=== PATIENT | male | born 1995 | race Caucasian/White ===

== ENCOUNTER 2021-06-20 15:59 | Emergency (ER) | payer MEDICAID ==
--- NOTE | 2021-06-20 16:36 | EDM.PDOC ---
<JeradMendez churchill - Last Filed: 06/20/21 18:55> ED HPI GENERAL MEDICAL PROBLEM - General Chief Complaint: Gastrointestinal Problem Stated Complaint: BLOOD IN STOOL Time Seen by Provider: 06/20/21 16:00 Source of Information: Reports: Patient History Limitations: Reports: No Limitations - History of Present Illness INITIAL COMMENTS - FREE TEXT/NARRATIVE: 26-year-old male past medical history DIXON-2 mutation, frequent blood clots, esophageal varices, status post TIPS procedure, status post variceal gluing, status post splenic and hepatic stent placement, chronic warfarin and aspirin use presents for symptoms of upper GI bleed. Patient notes that for the last 3 or 4 days he has noted dark tarry stools. Yesterday he had an episode of hematemesis with a small amount of blood. Today he began to develop left upper quadrant abdominal pain and had another episode of hematemesis. Bilateral Back Pain Score (Numeric/FACES): 10 - Related Data Allergies Allergy/AdvReac Type Severity Reaction Status Date / Time morphine Allergy Intermediate Rash Verified 06/20/21 16:54 hydrocodone Allergy Rash Verified 06/20/21 16:54 Home Meds: Home Meds Aspirin/Omeprazole [Aspirin-Omeprazol Dr 325-40 mg] 06/20/21 [History] Warfarin [Coumadin] 06/20/21 [History] ED ROS GENERAL - Review of Systems Review Of Systems: Comprehensive ROS is negative, except as noted in HPI. ED EXAM, GENERAL - Physical Exam Exam: See Below Exam Limited By: No Limitations General Appearance: Alert, WD/WN, No Apparent Distress Ears: Hearing Grossly Normal Throat/Mouth: Normal Voice, No Airway Compromise Head: Atraumatic, Normocephalic Neck: Normal Inspection Respiratory/Chest: No Respiratory Distress, Lungs Clear, Normal Breath Sounds, No Accessory Muscle Use Cardiovascular: Normal Peripheral Pulses, Tachycardia GI/Abdominal: Soft, Other (LUQ TTP) Extremities: Normal Inspection Neurological: Alert, Normal Cognition, Normal Gait Psychiatric: Normal Affect, Normal Mood Skin Exam: Warm, Dry, Intact, Normal Color Course - Re-Assessments/Exams Free Text/Narrative Re-Assessment/Exam: 06/20/21 18:55 Labs show mild anemia without baseline for comparison. Lactate is normal. INR is 2. Patient is requesting additional dose of Dilaudid which has been ordered. CT imaging is pending. Patient care transition to Dr. Shaver pending CT imaging. Departure - Departure Disposition: Home, Self-Care 01 Clinical Impression: GI bleed - Discharge Information Instructions: Gastrointestinal Bleeding, [id number] Referrals: PCP,None [Primary Care Provider] - Forms: ED Department Discharge Additional Instructions: You were evaluated today on an emergent basis. At this time your hemoglobin was stable and your CT did not reveal any abnormality. At this time I do recommend that you follow-up with your specialist in [place]. If you have any worsening symptoms I recommend you return to the emergency department. [facility] [address] [place] [id number] [address] The patient is informed of any results of their evaluation and diagnostic workup and all questions are answered. They are given discharge instructions and return precautions. The patient is stable for discharge. The patient states they understand and agree with the plan and that they will return if their symptoms get worse or if they have any new concerns. The following information is given to patients seen in the emergency department who are being discharged to home. This information is to outline your options for follow-up care. We provide all patients seen in our emergency department with a follow-up referral. The need for follow-up, as well as the timing and circumstances, are variable depending upon the specifics of your emergency department visit. If you don't have a primary care physician on staff, we will provide you with a referral. We always advise you to contact your personal physician following an emergency department visit to inform them of the circumstance of the visit and for follow-up with them and/or the need for any referrals to a consulting specialist. The emergency department will also refer you to a specialist when appropriate. This referral assures that you have the opportunity for follow-up care with a specialist. All of these measure are taken in an effort to provide you with optimal care, which includes your follow-up. Under all circumstances we always encourage you to contact your private physician who remains a resource for coordinating your care. When calling for f ollow-up care, please make the office aware that this follow-up is from your recent emergency room visit. If for any reason you are refused follow-up, please contact the [facility] Emergency Department at and asked to speak to the emergency department charge nurse. <Jerrell Shaver - Last Filed: 06/21/21 06:21> ED HPI GENERAL MEDICAL PROBLEM - History of Present Illness INITIAL COMMENTS - FREE TEXT/NARRATIVE: Patient was signed out to me by Dr. Rios pending CTA of the abdomen and pelvis at 7PM I did reevaluate the patient and patient continued to remain stable. His vitals were stable and all of his labs were within normal limits. The radiological images were viewed by myself along with reading the report from the radiologist. CTA of the abdomen and pelvis does not reveal any acute findings in the abdomen or pelvis. There is large amount of stool in the colon. There are embolization coils in the liver and spleen. The spleen is enlarged and lobulated. Multiple densely calcified vessels in the left upper quadrant. There is TIPS stent placed. After imaging I did discuss results with the patient. At this time the patient's vitals were again stable he had no episodes of further hematemesis. He states that he feels like he is okay to go home. He states that he needs to follow-up with his specialist in [place]. At this time I did give the patient strict return precautions. He is amenable to discharge at this time and had no further questions. DISPOSITION: The patient was discharged home in stable condition. The patient will follow up with his specialist in 2 days when he returns to [place]. CONDITION: Fair PROCEDURES: None FINAL IMPRESSION(S)/DIAGNOSES: 1. Acute upper GI bleed Jerrell Shaver M.D. Course - Vital Signs Last Recorded V/S: Last Vital Signs Temp 37.2 C 06/20/21 19:02 Pulse 94 06/20/21 22:03 Resp 15 06/20/21 22:03 BP 134/74 06/20/21 22:03 Pulse Ox 100 06/20/21 22:03 - Orders/Labs/Meds Orders: Active Orders 24 hr Category Date Time Status Ang Pelvis [CT] Stat Exams 06/20/21 16:51 Taken ANTIBODY IDENTIFICATION [BBK] Stat Lab 06/20/21 17:20 Results ANTIGEN TYPING [BBK] Stat Lab 06/20/21 17:20 Results RED BLOOD CELLS LP [BBK] Stat Lab 06/20/21 17:20 Results TYPE AND SCREEN [BBK] Stat Lab 06/20/21 17:20 Results Saline Lock Insert [OM.PC] Stat Oth 06/20/21 16:50 Ordered Labs: Laboratory Tests 06/20/21 06/20/21 06/20/21 Range/Units 16:46 16:46 16:46 WBC 8.77 (4.0-11.0) K/uL RBC 5.26 (4.50-5.90) M/uL Hgb 11.9 L (13.0-17.0) g/dL Hct 39.5 (38.0-50.0) % MCV 75.1 L (80.0-98.0) fL MCH 22.6 L (27.0-32.0) pg MCHC 30.1 L (31.0-37.0) g/dL RDW Std Deviation 56.7 (28.0-62.0) fl RDW Coeff of Amarjit 21 H (11.0-15.0) % Plt Count 250 (150-400) K/uL Neut % (Auto) 71.9 (48.0-80.0) % Lymph % (Auto) 13.5 L (16.0-40.0) % Kent % (Auto) 10.1 (0.0-15.0) % Eos % (Auto) 4.2 (0.0-7.0) % Baso % (Auto) 0.3 (0.0-1.5) % Neut # (Auto) 6.3 H (1.4-5.7) K/uL Lymph # (Auto) 1.2 (0.6-2.4) K/uL Kent # (Auto) 0.9 H (0.0-0.8) K/uL Eos # (Auto) 0.4 (0.0-0.7) K/uL Baso # (Auto) 0.0 (0.0-0.1) K/uL Nucleated RBC % 0.0 /100WBC Nucleated RBCs # 0 K/uL INR 2.05 APTT 34.5 H (18.6-31.3) SEC Sodium 141 (136-148) mmol/L Potassium 4.0 (3.5-5.1) mmol/L Chloride 106 (98-107) mmol/L Carbon Dioxide 27.3 (21.0-32.0) mmol/L BUN 11 (7.0-18.0) mg/dL Creatinine 1.0 (0.8-1.3) mg/dL Est Cr Clr Drug Dosing TNP Estimated GFR (MDRD) > 60.0 ml/min Glucose 99 (74-106) mg/dL Lactic Acid (0.4-2.0) mmol/L Calcium 8.6 (8.5-10.1) mg/dL Magnesium 2.1 (1.8-2.4) mg/dL Total Bilirubin 0.6 (0.2-1.0) mg/dL AST 44 H (15-37) IU/L ALT 39 (14-63) IU/L Alkaline Phosphatase 114 (46-116) U/L Troponin I < 0.050 (0.000-0.056) ng/mL Total Protein 7.5 (6.4-8.2) g/dL Albumin 3.9 (3.4-5.0) g/dL Globulin 3.6 (2.6-4.0) g/dL Albumin/Globulin Ratio 1.1 (0.9-1.6) Lipase 234 (73-393) U/L Blood Type Antibody Screen Antibody Identification Antigen Typing Crossmatch 06/20/21 06/20/21 Range/Units 17:20 17:20 WBC (4.0-11.0) K/uL RBC (4.50-5.90) M/uL Hgb (13.0-17.0) g/dL Hct (38.0-50.0) % MCV (80.0-98.0) fL MCH (27.0-32.0) pg MCHC (31.0-37.0) g/dL RDW Std Deviation (28.0-62.0) fl RDW Coeff of Amarjit (11.0-15.0) % Plt Count (150-400) K/uL Neut % (Auto) (48.0-80.0) % Lymph % (Auto) (16.0-40.0) % Kent % (Auto) (0.0-15.0) % Eos % (Auto) (0.0-7.0) % Baso % (Auto) (0.0-1.5) % Neut # (Auto) (1.4-5.7) K/uL Lymph # (Auto) (0.6-2.4) K/uL Kent # (Auto) (0.0-0.8) K/uL Eos # (Auto) (0.0-0.7) K/uL Baso # (Auto) (0.0-0.1) K/uL Nucleated RBC % /100WBC Nucleated RBCs # K/uL INR APTT (18.6-31.3) SEC Sodium (136-148) mmol/L Potassium (3.5-5.1) mmol/L Chloride (98-107) mmol/L Carbon Dioxide (21.0-32.0) mmol/L BUN (7.0-18.0) mg/dL Creatinine (0.8-1.3) mg/dL Est Cr Clr Drug Dosing Estimated GFR (MDRD) ml/min Glucose (74-106) mg/dL Lactic Acid 1.3 (0.4-2.0) mmol/L Calcium (8.5-10.1) mg/dL Magnesium (1.8-2.4) mg/dL Total Bilirubin (0.2-1.0) mg/dL AST (15-37) IU/L ALT (14-63) IU/L Alkaline Phosphatase (46-116) U/L Troponin I (0.000-0.056) ng/mL Total Protein (6.4-8.2) g/dL Albumin (3.4-5.0) g/dL Globulin (2.6-4.0) g/dL Albumin/Globulin Ratio (0.9-1.6) Lipase (73-393) U/L Blood Type A POSITIVE Antibody Screen POSITIVE Antibody Identification Anti-Jka Antigen Typing Jka Antigen - NEGATIVE Crossmatch See Detail Meds: Medications Discontinued Medications Generic Name Dose Route Start Last Admin Trade Name Freq PRN Reason Stop Dose Admin Hydromorphone HCl 1 mg 06/20/21 16:52 06/20/21 17:26 Hydromorphone 1 Mg/Ml Syringe IVPUSH 06/20/21 16:53 1 mg ONETIME ONE Administration Hydromorphone HCl 1 mg 06/20/21 18:52 06/20/21 19:00 Hydromorphone 1 Mg/Ml Syringe IVPUSH 06/20/21 18:53 1 mg ONETIME ONE Administration Sodium Chloride 1,000 mls @ 999 mls/hr 06/20/21 16:52 06/20/21 17:58 Normal Saline IV 06/20/21 17:52 999 mls/hr .Bolus ONE Administration Pantoprazole Sodium 40 mg/ 10 mls @ 300 mls/hr 06/20/21 16:52 06/20/21 17:36 Sodium Chloride IV 06/20/21 16:53 300 mls/hr NOW ONE Administration Ceftriaxone Sodium/Dextrose 1 50 mls @ 100 mls/hr 06/20/21 16:52 06/20/21 17:32 gm/ Premix IV 06/20/21 17:21 100 mls/hr ONETIME ONE Administration Iopamidol 100 ml 06/20/21 18:44 06/20/21 18:54 Iopamidol 755 Mg/Ml 100 Ml Bottle IVPUSH 06/20/21 18:45 100 ml ONETIME STA Administration Sodium Chloride 10 ml 06/20/21 16:50 06/20/21 17:31 Sodium Chloride 0.9% 10 Ml Syringe FLUSH 10 ml ASDIRECTED PRN Administration Keep Vein Open Sodium Chloride 2.5 ml 06/20/21 16:50 06/20/21 17:31 Sodium Chloride 0.9% 2.5 Ml Syringe FLUSH 2.5 ml ASDIRECTED PRN Administration Keep Vein Open Departure - Departure Time of Disposition: 21:54 Condition: Fair - Discharge Information *PRESCRIPTION DRUG MONITORING PROGRAM REVIEWED*: No *COPY OF PRESCRIPTION DRUG MONITORING REPORT IN PATIENT BIRGIT: No Sepsis Event Note (ED) - Focused Exam Vital Signs: Vital Signs Temp Pulse Resp BP Pulse Ox 06/20/21 22:03 94 15 134/74 100 06/20/21 19:02 37.2 C 92 18 119/68 99
[2021-06-20] MEDS ORDERED: Sodium Chloride 0.9% 2.5 ML Syringe FLUSH PRN (16:50)
[2021-06-20] MEDS ORDERED: Sodium Chloride 0.9% 10 ML Syringe FLUSH PRN (16:50)
[2021-06-20] MEDS ORDERED: cefTRIAXone 1 GM in Premix Bag 1 BAG IV ONE (16:52)
[2021-06-20] MEDS ORDERED: Sodium Chloride 0.9% 1,000 ML IV ONE (16:52)
[2021-06-20] MEDS ORDERED: HYDROmorphone 1 MG/ML Syringe IVPUSH ONE ×2 (16:52→18:52)
[2021-06-20] MEDS ORDERED: Pantoprazole 40 MG in Sodium Chloride 0.9% 10 ML IV ONE (16:52)
[2021-06-20 17:26] LABS: BLOOD UREA NITROGEN,BUN 11 mg/dL (7.0-18.0); CARBON DIOXIDE,CO2 27.3 mmol/L (21.0-32.0); CHLORIDE,CL 106 mmol/L (98-107); GLUCOSE RANDOM 99 mg/dL (74-106); LIPASE 234 U/L (73-393); SODIUM,NA 141 mmol/L (136-148)
[2021-06-20] MEDS ORDERED: Iopamidol 755 Mg/ML 100 ML Bottle IVPUSH STA (18:44)
--- NOTE | 2021-06-20 19:26 | CR ---
Indication: Pain, shortness of breath Technique: Chest 1 view Comparison: None Findings/Impression: Cardiovascular and mediastinum: Heart size and vasculature are normal in caliber and appearance. Lungs and pleural space: Lungs are clear. No sign of infiltrate or mass. No sign of pleural effusion. No pneumothorax. Bones and soft tissues: Right upper quadrant stent and coils within the upper abdomen. Dictated by Willi Jenkins MD @ 06/20/2021 7:25:[address] Willi Jenkins @ Jun 20 2021 7:25PM
--- NOTE | 2021-06-20 19:32 | CT ---
CT ANGIOGRAM ABDOMEN AND PELVIS WITH INTRAVENOUS CONTRAST, 06/20/2021 COMPARISON: None. CLINICAL HISTORY: 26-year-old with a history of hematemesis and with left upper quadrant pain. The patient has a history of complex TIPS procedure in the past. TECHNIQUE: Following the administration of intravenous contrast, contiguous axial images were obtained through the abdomen and pelvis in the early arterial phase. FINDINGS: Abdomen: There is no pleural effusion. No concerning pulmonary nodules. No pericardial effusion. The abdomen appears normal. There is evidence of a transjugular intrahepatic portosystemic shunt. There is metallic artifact from some coils in the right lobe of the liver, presumably placed after transhepatic access. The adrenal glands, kidneys and pancreas appear normal. The spleen is enlarged. There is metallic artifact from coils within the spleen suggesting transsplenic access prior to the intervention. The spleen is enlarged, measuring 13.6 cm diameter. Radiopaque material posterior and within the posterior wall of the stomach presumably glue or Lipiodol related to embolization of gastric varices. No free fluid or free air. No lymphadenopathy. No bowel obstruction. Large amount of material within the stomach. No acute bony lytic or blastic lesions. Pelvis: The urinary bladder is unremarkable in a moderately distended state. Uterus and adnexal regions appear within normal limits. No free fluid. No lymphadenopathy. No bony lytic or blastic lesions. Vasculature: The visualized thoracoabdominal aorta is nonaneurysmal, demonstrating normal course, caliber and contour. The celiac artery is patent. The hepatic arteries are enlarged. The splenic artery is patent. The superior mesenteric artery is patent. There are two left renal arteries and a single right renal artery which appears patent. The bilateral common, internal and external iliac arteries are patent. The bilateral common femoral arteries, proximal superficial femoral arteries, and deep common femoral arteries appear patent. There are changes related to transjugular intrahepatic portosystemic shunt (TIPS). Stents telescoping within the TIPS appear to course in the splenic vein and in the superior mesenteric vein. Unfortunately, given timing of image acquisition, the systemic and portal veins are not seen. IMPRESSION: 1)No acute findings in the abdomen or pelvis to explain the patients symptoms. 2)Changes suggesting complex TIPS placement with transhepatic and transsplenic access as well as embolization of gastric varices. 3)Large amount of stool throughout the colon. KENDALL CUEVAS M.D. Vascular and Interventional Radiology [email or web address] Transcribed: 6:[address]/Dictated by: Kendall Cuevas MD @ 06/21/2021 4:40:00 PM (Electronically Signed)
--- NOTE | 2021-06-24 12:19 | CT ---
EXAM DATE: 06/20/21 PATIENT'S AGE: 26 Patient: FRANCHESKA BEAVER Facility: [facility] Site . Site : 1995 Study: CT-Abdomen/Pelvis Angio-06/20/2021 6:53:40 PM Ordering Physician: Blanca Simms Final Report: CT ANGIOGRAM ABDOMEN AND PELVIS WITH INTRAVENOUS CONTRAST, 06/20/2021 COMPARISON: None. CLINICAL HISTORY: 26-year-old with a history of hematemesis and with left upper quadrant pain. The patient has a history of complex TIPS procedure in the past. TECHNIQUE: Following the administration of intravenous contrast, contiguous axial images were obtained through the abdomen and pelvis in the early arterial phase. FINDINGS: Abdomen: There is no pleural effusion. No concerning pulmonary nodules. No pericardial effusion. The abdomen appears normal. There is evidence of a transjugular intrahepatic portosystemic shunt. There is metallic artifact from some coils in the right lobe of the liver, presumably placed after transhepatic access. The adrenal glands, kidneys and pancreas appear normal. The spleen is enlarged. There is metallic artifact from coils within the spleen suggesting transsplenic access prior to the intervention. The spleen is enlarged, measuring 13.6 cm diameter. Radiopaque material posterior and within the posterior wall of the stomach presumably glue or Lipiodol related to embolization of gastric varices. No free fluid or free air. No lymphadenopathy. No bowel obstruction. Large amount of material within the stomach. No acute bony lytic or blastic lesions. Pelvis: The urinary bladder is unremarkable in a moderately distended state. Uterus and adnexal regions appear within normal limits. No free fluid. No lymphadenopathy. No bony lytic or blastic lesions. Vasculature: The visualized thoracoabdominal aorta is nonaneurysmal, demonstrating normal course, caliber and contour. The celiac artery is patent. The hepatic arteries are enlarged. The splenic artery is patent. The superior mesenteric artery is patent. There are two left renal arteries and a single right renal artery which appears patent. The bilateral common, internal and external iliac arteries are patent. The bilateral common femoral arteries, proximal superficial femoral arteries, and deep common femoral arteries appear patent. There are changes related to transjugular intrahepatic portosystemic shunt (TIPS). Stents telescoping within the TIPS appear to course in the splenic vein and in the superior mesenteric vein. Unfortunately, given timing of image acquisition, the systemic and portal veins are not seen. IMPRESSION: 1) No acute findings in the abdomen or pelvis to explain the patients symptoms. 2) Changes suggesting complex TIPS placement with transhepatic and transsplenic access as well as embolization of gastric varices. 3) Large amount of stool throughout the colon. KENDALL CUEVAS M.D. Vascular and Interventional Radiology [email or web address] [email or web address] D& Transcribed: 6:[address]/Dictated by: Kendall Cuevas MD @ 06/21/2021 4:40:00 PM Signed by: Kendall Cuevas MD @06/24/2021 8:10:05 AM (Electronic Signature) Report Signed by Proxy. [email or web address]
== END 2021-06-20 22:02 | disposition home or self-care (01) ==
LOC: MW.ED 15:59
DX: K92.2 Gastrointestinal hemorrhage, unspecified (principal); Z79.82 Long term (current) use of aspirin; Z88.5 Allergy status to narcotic agent; Z79.01 Long term (current) use of anticoagulants
CPT/HCPCS: 36415; 71045; 72191; 74175; 80053; 83605; 83690; 83735; 84484; 85025; 85610; 85730; 86850; 86870; 86900; 86901; 86902; 86920; 86921; 86922; 96365; 96366; 96375; 96376; 99285; C9113; J0696; J1170; J7030; Q9967